=== PATIENT | male | born 1945 | race Caucasian/White ===

== ENCOUNTER 2022-11-29 08:57 | Inpatient (IN) | payer OTHER ==
[~2022-11-29] VITALS: Ht 180.3 cm; Wt 115.2 kg
[~2022-11-29 08:57] MED LIST: ALBU90OI INH; AMLO5 PO; ASPI81CH PO; ATOR80 PO; CITA20 PO; CITALOPRAM; FISH OIL 1,2001 EAC7 PO; LOSARTAN POTASS25 MG PO; METO25ER PO; SERT100 PO; TERA5 PO; TIOT18; TRAM50 PO; VITAMIN D31000 UNI1 PO; WARF10 PO
[2022-11-29] MEDS ORDERED: OMEP20ER PO (09:13)
[2022-11-29] MEDS ORDERED: WARF5 PO (09:13)
[2022-11-29 09:55] LABS: BASOPHILS ABSOLUTE AUTO 0.04 K/mm3 (0.00-0.23); BASOPHILS PERCENT AUTO 1 % (0-2); EOSINOPHILS PERCENT AUTO 3 % (0-6); Hematocrit 38.3 % (37.0-53.0); Hemoglobin 13.6 g/dL (13.5-17.5); IMMATURE GRAN ABSOLUTE AUTO 0.02 K/mm3 (0.00-0.10); IMMATURE GRAN PERCENT AUTO 0 % (0-1); LYMPHOCYTES ABSOLUTE AUTO 1.64 K/mm3 (0.84-5.20); LYMPHOCYTES PERCENT AUTO 23 % (21-46); MONOCYTES ABSOLUTE AUTO 0.84 K/mm3 (0.16-1.47); MONOCYTES PERCENT AUTO 12 % (4-13); Mean Corpuscular HGB 33.3 pg (26.0-34.0); Mean Corpuscular HGB Conc 35.5 g/dL (31.5-36.5); Mean Corpuscular Volume 94 fL (80-100); Mean Platelet Volume 9.9 fL (9.1-12.4); NEUTROPHILS ABSOLUTE AUTO 4.32 K/mm3 (1.96-9.15); NEUTROPHILS PERCENT AUTO 61 % (41-73); Platelet Count 105 K/mm3 (150-400); RDW Coefficient Variation 12.7 % (11.7-14.2); RDW Standard Deviation 43.7 fL (35.1-46.3); Red Blood Cell Count 4.08 M/mm3 (4.30-5.90); White Blood Cell Count 7.06 K/mm3 (4.00-11.30)
[2022-11-29 10:07] LABS: Albumin, Blood 3.5 g/dL (3.4-5.0); Albumin/Globulin Ratio 1.1 (0.8-1.8); Bilirubin, Total 0.4 mg/dL (0.1-1.0); Bun/Creatinine Ratio 28.9 (12.0-20.0); Calcium, Blood 8.7 mg/dL (8.5-10.1); Creatinine, Blood 1.35 mg/dL (0.60-1.20); Globulin, Blood 3.2 g/dL (2.2-4.0); Potassium, Blood 4.3 mmol/L (3.5-5.5); Total Protein, Blood 6.7 g/dL (6.4-8.2)
[2022-11-29 10:17] LABS: International Normalized Ratio 1.37; Prothrombin Time Results 14.1 Sec (9.7-11.5)
[2022-11-29 13:33] VITALS: BP 146/57
[2022-11-29 15:58] VITALS: BP 133/73
[2022-11-29] MEDS ORDERED: WARF1 PO (16:27)
--- NOTE | 2022-11-29 18:42 | NUR ---
PT ARRIVED FROM ER THIS AFTERNOON WITH C/O BRADYCARDIA. PT ARRIVES TO UNIT WITH NOTED TRIGEMINY ON MONITOR WITH RATE IN 60s. PT DENIES CP OR SOB, WITH COUGH THAT IS PRODUCTIVE WITH GREEN MUCUS. PT WITH POSSIBLE TRANSFER TO [facility] FOR PACE MAKER PLACEMENT
[2022-11-29 19:44] VITALS: BP 136/91
[2022-11-29 23:08] VITALS: BP 126/66
[2022-11-30 03:11] VITALS: BP 147/59
[2022-11-30 04:16] LABS: BASOPHILS ABSOLUTE AUTO 0.03 K/mm3 (0.00-0.23); BASOPHILS PERCENT AUTO 1 % (0-2); EOSINOPHILS ABSOLUTE AUTO 0.27 K/mm3 (0.00-0.68); EOSINOPHILS PERCENT AUTO 4 % (0-6); Hematocrit 38.8 % (37.0-53.0); Hemoglobin 13.6 g/dL (13.5-17.5); IMMATURE GRAN ABSOLUTE AUTO 0.01 K/mm3 (0.00-0.10); IMMATURE GRAN PERCENT AUTO 0 % (0-1); LYMPHOCYTES ABSOLUTE AUTO 1.73 K/mm3 (0.84-5.20); LYMPHOCYTES PERCENT AUTO 27 % (21-46); MONOCYTES ABSOLUTE AUTO 0.68 K/mm3 (0.16-1.47); MONOCYTES PERCENT AUTO 11 % (4-13); Mean Corpuscular HGB 33.3 pg (26.0-34.0); Mean Corpuscular HGB Conc 35.1 g/dL (31.5-36.5); Mean Corpuscular Volume 95 fL (80-100); Mean Platelet Volume 9.5 fL (9.1-12.4); NEUTROPHILS ABSOLUTE AUTO 3.76 K/mm3 (1.96-9.15); NEUTROPHILS PERCENT AUTO 58 % (41-73); Platelet Count 105 K/mm3 (150-400); RDW Coefficient Variation 12.6 % (11.7-14.2); Red Blood Cell Count 4.09 M/mm3 (4.30-5.90); White Blood Cell Count 6.48 K/mm3 (4.00-11.30)
[2022-11-30 04:28] LABS: International Normalized Ratio 1.8; Prothrombin Time Results 18.3 Sec (9.7-11.5)
[2022-11-30 04:37] LABS: Albumin, Blood 3.5 g/dL (3.4-5.0); Albumin/Globulin Ratio 1.1 (0.8-1.8); Bilirubin, Total 0.5 mg/dL (0.1-1.0); Calcium, Blood 8.9 mg/dL (8.5-10.1); Creatinine, Blood 1.28 mg/dL (0.60-1.20); Globulin, Blood 3.1 g/dL (2.2-4.0); Potassium, Blood 4.3 mmol/L (3.5-5.5); Total Protein, Blood 6.6 g/dL (6.4-8.2)
--- NOTE | 2022-11-30 06:38 | NUR ---
SHIFT SUMMARY PT IS A/Ox4 AND COOPERATIVE WITH CARE PROVIDED BY MEMBERS OF STAFF. ANSWERS QUESTIONS APPROPRIATELY AND ABLE TO MAKE HIS NEEDS KNOWN. PT IS ALSO COWLITZ. CARDIAC OSPINA, PT HAS BOUNCED ARROUND BETWEEN BIGEMINY WELL TRIGEMINY WITH HR RANGING 50-70'S T/O THE NIGHT. THERE WAS EPISODE WHEN PT ABULATED TO THE BATHROOM WHERE HIS HR KIRILL'D DOWN TO THE 30'S FOR ABOUT 30 SEC. AT THE TIME THE PT DID NOT REPORT ANY SYMPTOMS UNTIL HE GOT BACK TO BED. ONCE IN BED, PT REPORT FEELING "SOME PRESSURE" MIDSTERNALLY, BUT HIS SYMPTOMS RESOLVED QUICKLY. NO OTHER OCCURANCES OF THESE EPISODES DURING THE REST OF THE NIGHT. MAINTAIN SPO2 >92% ON RA WITH NO SOB OR DYSPNEA NOTED. ABLE TO ABULATE TO BATHROOM TITH SBP ASSIST. USES CANE AT BASELINE ACCORDING TO THE PT. ABLE TO IND. VOID IN URINAL. NO OTHER ORDERS AT THIS TIME, WILL REPORT TO SUDHAKAR WONG OF THIS NOTE
[2022-11-30 07:17] VITALS: BP 149/63
--- NOTE | 2022-11-30 08:57 | NUR ---
DR. BEAN AND DR. LA AT BEDSIDE. ECHO ORDERED TODAY, AND WE ARE WAITING FOR A BED AT THE [place]. NO FURTHER ORDERS AT THIS TIME.
[2022-11-30 11:16] VITALS: BP 142/82
--- NOTE | 2022-11-30 13:17 | NUR ---
CARDIOLOGY AT BEDSIDE, DR. WILBURN AND DR. BEY. NO ORDERS AT THIS TIME.
[2022-11-30 15:47] VITALS: BP 130/63
--- NOTE | 2022-11-30 17:49 | NUR ---
HIFT SUMMARY PT IS A&OX4, AND CALLS APPROPRIATELY. HIS VISITED THIS AM AND WAS UPDATED ON CARE. THE PT HAS NOT HAD ANY BRADYCARDIA EVENTS THIS SHIFT. HE HAS BEEN SR 60'S-70'S W/ BIGEMINY, TRIGEMINY, AND BBB ON TELE. HE HAS DENIED ANY ANGINA OR CHEST PRESSURE THIS SHIFT. A COFFEE BREWER CONSULT WAS OBTAINED TO DETERMINE IF THE PT IS PACEMAKER APPROPRIATE. DR. WILBURN AND DR. BEY STATED AT THIS TIME THE PT HAS NOT SHOWED INDICATION FOR A PACEMAKER BUT HE DOES NEED A VALVE REPAIR. [facility] FAXED OVER HIS RECORDS AND THE COFFEE BREWER WILL REVIEW THEM TO DETERMINE THE DIRECTION OF CARE. PT HAS BEEN ON RA THIS SHIFT AND HAS DENIED ANY SOB. HE WAS ABLE TO GIVE HIMSELF A BED BATH W/O ANY ISSUES. HE IS A SBA FOR [place] AND MAKES HIS NEEDS KNOWN. BED IN LOW, CALL LIGHT IN REACH. SEE NOTES FOR ANY UPDATES.
[2022-11-30 19:20] VITALS: BP 135/53
[2022-11-30 23:32] VITALS: BP 141/80
[2022-12-01 03:24] VITALS: BP 134/69
[2022-12-01 04:27] LABS: BASOPHILS ABSOLUTE AUTO 0.03 K/mm3 (0.00-0.23); BASOPHILS PERCENT AUTO 0 % (0-2); EOSINOPHILS ABSOLUTE AUTO 0.34 K/mm3 (0.00-0.68); EOSINOPHILS PERCENT AUTO 5 % (0-6); Hematocrit 39.6 % (37.0-53.0); Hemoglobin 13.5 g/dL (13.5-17.5); IMMATURE GRAN ABSOLUTE AUTO 0.01 K/mm3 (0.00-0.10); IMMATURE GRAN PERCENT AUTO 0 % (0-1); LYMPHOCYTES ABSOLUTE AUTO 1.89 K/mm3 (0.84-5.20); LYMPHOCYTES PERCENT AUTO 28 % (21-46); MONOCYTES PERCENT AUTO 12 % (4-13); Mean Corpuscular HGB 32.2 pg (26.0-34.0); Mean Corpuscular HGB Conc 34.1 g/dL (31.5-36.5); Mean Corpuscular Volume 95 fL (80-100); Mean Platelet Volume 9.6 fL (9.1-12.4); NEUTROPHILS ABSOLUTE AUTO 3.78 K/mm3 (1.96-9.15); NEUTROPHILS PERCENT AUTO 55 % (41-73); Platelet Count 105 K/mm3 (150-400); RDW Coefficient Variation 12.6 % (11.7-14.2); RDW Standard Deviation 43.6 fL (35.1-46.3); Red Blood Cell Count 4.19 M/mm3 (4.30-5.90); White Blood Cell Count 6.85 K/mm3 (4.00-11.30)
[2022-12-01 04:47] LABS: Albumin, Blood 3.4 g/dL (3.4-5.0); Anion Gap 5 mmol/L (6-16); Blood Urea Nitrogen 29 mg/dL (8-24); Bun/Creatinine Ratio 21.6 (12.0-20.0); CO2, Blood 25 mmol/L (21-32); Calcium, Blood 8.8 mg/dL (8.5-10.1); Chloride, Blood 111 mmol/L (98-108); Creatinine, Blood 1.34 mg/dL (0.60-1.20); Glomerular Filtration Rate 55 (60-); Glucose, Blood 93 mg/dL (70-99); Magnesium, Blood 2.2 mg/dL (1.6-2.4); Phosphorus, Blood 3.5 mg/dL (2.5-4.9); Potassium, Blood 4.5 mmol/L (3.5-5.5); Sodium, Blood 141 mmol/L (136-145)
[2022-12-01 04:59] LABS: International Normalized Ratio 3.1; Prothrombin Time Results 30.5 Sec (9.7-11.5)
--- NOTE | 2022-12-01 05:22 | NUR ---
SHIFT SUMMARY PT A/Ox4 AND COOPERATIVE WITH CARE PROVIDED BY MEMBERS OF STAFF. ANSWERS QUESTIONS APPROPRIATELY AND ABLE TO MAKE HIS NEEDS KNOWN. CARDIAC OSPINA, PT RHYTHM VARIES BETWEEN BIGEMINY AND TRIGEMINY WITH A RATE 50-60'S. NO COMPLAINTS OF CP, PRESSURE, OR DIZZINESS T/O THE SHIFT. PT DID HAVE ANOTHER EPISODE OF BRADYCARDIA WHERE HIS HR DROPPED TO THE 20-30'S FOR ~15-20 SECS. PT WAS ASYMPTOMATIC HOWEVER FOR HE DID NOT REPORT ANY DIZZNESS/WEAKNESS AT THE TIME OF THS EVENT. MAINTAINS SPO2 >90% ON RA WITH NO REPORTS OF SOB OR DYSPEA. ABLE TO WALK TO BATHROOM OR BSC W/O ASSISTANCE FROM STAFF. NO NEW ORDERS AT THIS TIME, WILL REPORT TO ONCOMING RN.
[2022-12-01 09:19] VITALS: BP 147/87
[2022-12-01 11:34] VITALS: BP 139/65
[2022-12-01 14:46] VITALS: BP 135/59
--- NOTE | 2022-12-01 15:34 | NUR ---
Spiritual care visit conducted. Patient immediately tells me about his medical problems, his thoughts on and dying and his concerns for his spouse. Patient talks about his deep peace about deatha dn the afterlife. He then shares about his strong Christain endy and his strong yazdanism connections with [facility]. He voices concerns about not knowing what the medical plan will be with him. He states that he would prefer to not go home with his medical issues unresolved. I listen empathically, normalize his feelings and fears and provide anxiety containment, and prayer. Patient reponded well and showed signs of increased peace and an elevated mood
[2022-12-01 19:29] VITALS: BP 123/60
[2022-12-01 23:06] VITALS: BP 141/66
[2022-12-02 03:58] VITALS: BP 142/65
--- NOTE | 2022-12-02 06:17 | NUR ---
SHIFT SUMMARY PT IS A/Ox4 AND COOPERATIVE WITH CARE PROVIDED BY MEMBERS OF STAFF. ANSWERS QUESTIONS APPROPRIATELY AND ABLE TO MAKE HIS NEEDS KNOWN. NO ACUTE EVENTS LAST NIGHT FOR PT WAS ABLE TO SLEEP FOR MAJORITY TO THE SHIFT. CARDIAC OSPINA, REMAINS IN BIGEMINY WITH OCCASIONAL SWITCH TO TRIGEMINY. NO REPORTS OF CP, DIZZYNESS, OR WEAKNES T/O THE SHIFT. BP'S HAVE BEEN STABLE WELL. RESPIRATORY OSPINA, MAINTAINS SPO2 >92% ON RA WITH NO C/O SOB OR DYSPNEA. CAN OCCASIONALLY DESAT TO UPPER 80'S WHEN SLEEPING, BUT DOES NOT SUSTAIN THERE. ABLE TO IND. VOID IN HIS URINAL OR SBA WALK TO THE BATHROOM. PT UPDATED ON PLAN OF CARE FOR TRANSFER UP [place] FOR TAVR REPAIR. NO NEW ORDERS AT THIS TIME, WILL REPORT TO ONCOMING RN. WONG T/O THE SHIFT
[2022-12-02 06:34] LABS: International Normalized Ratio 2.94
[2022-12-02 06:56] LABS: Albumin, Blood 3.5 g/dL (3.4-5.0); Anion Gap 3 mmol/L (6-16); Blood Urea Nitrogen 30 mg/dL (8-24); Bun/Creatinine Ratio 20.7 (12.0-20.0); CO2, Blood 28 mmol/L (21-32); Calcium, Blood 8.8 mg/dL (8.5-10.1); Chloride, Blood 110 mmol/L (98-108); Creatinine, Blood 1.45 mg/dL (0.60-1.20); Glomerular Filtration Rate 50 (60-); Glucose, Blood 95 mg/dL (70-99); Phosphorus, Blood 3.8 mg/dL (2.5-4.9); Potassium, Blood 4.8 mmol/L (3.5-5.5); Sodium, Blood 141 mmol/L (136-145)
[2022-12-02 07:46] VITALS: BP 128/53
--- NOTE | 2022-12-02 09:34 | NUR ---
PT A&OX4, PLEASANT AND COOPERATIVE WITH CARE. LUNG SOUNDS CLEAR BILATERALLY, PT DENIES SOB. HR SR/TRI & BI GEM PVC/PAC/BBB 60'S, PT DENIES CHEST PAIN/PRESSURE. BOWEL TONES PRESENT, NO TENDERNESS OR DISTENTION. PT STATED INTERMITTENT NEUROPATHY IN FEET. PULSES EQUAL AND STRONG UPPER AND LOWER EXTREMITIES. PT ATE 100% OF BREAKFAST. PT RESTING IN BED, CALL LIGHT WITHIN REACH.
--- NOTE | 2022-12-02 11:05 | NUR ---
WALKED PT AND MONITORED HR AND OXYGEN SATURATION PER DR. ROSADO. WALKED PT FROM HIS ROOM, AROUND THE NURSING STATION ONCE, AND BACK TO HIS ROOM. DURING THE WALK, PT STATED ON TWO SEPARATE OCCASIONS HE WAS FEELING FUZZY/DIZZY AND EXPERIENCING AN ACHING PAIN IN HIS CHEST. THE LOWEST HIS O2 SATURATION DROPPED TO WAS AROUND 90%, HIS HR INCREASED TO 70'S-80'S. ONCE IN HIS ROOM, PT STATED IT TOOK HIM AWHILE TO CATCH HIS BREATH. PT RESTING IN ROOM WITH FEMALE VISITOR, CALL LIGHT WITHIN REACH.
[2022-12-02 11:13] VITALS: BP 138/64
--- NOTE | 2022-12-02 11:46 | NUR ---
CALL PLACED TO DR. ANDREW AND DR. ROSADO TO UPDATE ON PATIENT RESPONSE TO WALK. NO NEW ORDERS. AT BEDSIDE. DR. ROSADO TO STOP BY AND VISIT WITH AFTER ROUNDS.
[2022-12-02 15:15] VITALS: BP 128/63
--- NOTE | 2022-12-02 15:58 | NUR ---
LONGWALL FOREMAN FROM [place] CALLED AND SPOKE WITH THIS RN. LONGWALL FOREMAN CAN BE REACHED AT [phone] AT [facility] [phone]. LONGWALL FOREMAN CONFIRMED PATIENT IS WAITING FOR BED. ONLY AVAILIBLE BED YESTERDAY WAS ICU. DR. ROSADO, FRUIT CANNER AND PATIENT/ UPDATED ON PENDING BED/TRANSFER.
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
--- NOTE | 2022-12-02 17:15 | NUR ---
PT HAS BEEN RESTING IN BED. PT AND HIS INFORMED BY KYLE SUÁREZ THAT PT WAS ACCEPTED INTO [facility], JUST WAITING FOR A BED TO OPEN UP. PT AND HIS STATED UNDERSTANDING. NO ACUTE CHANGES, SEE PREVIOUS NOTE. HR 50'S-70'S, PT DENIES CHEST PAIN/PRESSURE. O2 SATURATION ABOVE 92% ON ROOM AIR, DENIES SOB. PT EATING DINNER, CALL LIGHT WITHIN REACH.
--- NOTE | 2022-12-02 17:41 | NUR ---
THIS RN HAS REVIEWED ALL TONGUE AND GROOVE MACHINE SETTER DOCUMENTATION
[2022-12-02 19:39] VITALS: BP 137/60
[2022-12-02 23:45] VITALS: BP 136/99
--- NOTE | 2022-12-03 04:35 | NUR ---
END OF SHIFT: PATIENT DENIES CHEST PAIN PRESSURE OR INCREASED SOB. PATIENT ALERT AND ORIENTED, VSS ABLE TO MAKE NEEDS KNOWN. SWITCEHED IV DUE TO INFILTRATION ON Q12 FLUSHING. PATIENT TOLERATED WELL. NO CHANGE TO RATE AND RYHTHM FROM ASSUMPTION OF CARE. NO NEWS FROM [facility] OF BED AVAILABLE STILL WAITING. PATIENT SLEPT WELL MOST OF THE SHIFT, WILL CONTINUE TO MONITOR UNTIL SHIFT CHANGE. NO CONCERNS FROM PATIENT OR THIS MASS SPEC AT THIS TIME.
[2022-12-03 04:57] VITALS: BP 148/75
[2022-12-03 05:00] LABS: International Normalized Ratio 2.35; Prothrombin Time Results 23.5 Sec (9.7-11.5)
[2022-12-03 05:05] LABS: Albumin, Blood 3.4 g/dL (3.4-5.0); Anion Gap 5 mmol/L (6-16); Blood Urea Nitrogen 32 mg/dL (8-24); Bun/Creatinine Ratio 21.8 (12.0-20.0); CO2, Blood 26 mmol/L (21-32); Calcium, Blood 8.9 mg/dL (8.5-10.1); Chloride, Blood 110 mmol/L (98-108); Creatinine, Blood 1.47 mg/dL (0.60-1.20); Glomerular Filtration Rate 49 (60-); Glucose, Blood 97 mg/dL (70-99); Phosphorus, Blood 3.8 mg/dL (2.5-4.9); Potassium, Blood 4.6 mmol/L (3.5-5.5); Sodium, Blood 141 mmol/L (136-145)
[2022-12-03 08:15] VITALS: BP 154/68
--- NOTE | 2022-12-03 09:22 | NUR ---
PT A&OX4, PLEASANT AND COOPERATIVE WITH CARE. PT STATED SMALL AMOUNT OF DARK/GREEN SPUTUM PRESENT WHEN COUGHS THIS MORNING, LUNG SOUNDS CLEAR THROUGHOUT, PT DENIES SOB. HR SR/TRI & BI GEM PVC/PAC/BBB 60'S-70'S, DENIES CHEST PAIN/PRESSURE, BP STABLE. NO SWELLING OF LOWER EXTREMITIES. PT DENIES PAIN. PT GOT UP IN CHAIR FOR BREAKFAST. PT NOW RESTING IN UPRIGHT POSITION IN BED, CALL LIGHT WITHIN REACH.
--- NOTE | 2022-12-03 10:23 | NUR ---
DR. ROSADO BY THIS AM. STILL WAITING FOR [facility] TO OPEN UP AND [facility] TRANSFER. PATIENT REPORTS GREEN SPUTUM TO DR. ROSADO, RECOMMENDATIONS TO DRINK MORE FLUIDS.
[2022-12-03 11:34] VITALS: BP 153/57
--- NOTE | 2022-12-03 11:35 | NUR ---
Spiritual care visit conducted. Patient immediately tells me that he feels bad about taking a bed locally in the hospital when he should be up in [place] having his heart worked on. He also discusses his personal struggles. He talks about his yarsani and the new building they have just taken ownership of, and the support that he feels from the yarsani especially in challenging times. I listen empathically, reinforce helpful attitudes, recite scriptures that are directional and inspirational, and provide gentle budget counselor and prayer. Patient responded well and showed signs of being encouraged in his endy and a sense of catharsis.
--- NOTE | 2022-12-03 12:29 | NUR ---
SPOKE WITH NAYELI FROM [place], CAN BE REACHED AT [phone] [facility]. NAYELI STATES PATIENT IS STILL ON WAITLIST FOR [facility] TRANSFER. WAITING ON BED.
[2022-12-03 15:34] VITALS: BP 144/62
--- NOTE | 2022-12-03 16:25 | NUR ---
Pt here awaiting transfer to [facility] for pacer and TAVR. AT this time, these are the goals he is focused on. Established repoir, but nothing more at this time. Pt was pleasant, alert and oriented.
--- NOTE | 2022-12-03 17:08 | NUR ---
NO ACUTE CHANGES, SEE PREVIOUS NOTE. HR SR/TRI & BI GEM PVC/PAC/BBB, BP STABLE, PT DENIES CHEST PAIN. LUNG SOUNDS CLEAR, SATING ABOVE 94% ON RA. PT RESTING IN BED, CALL LIGHT WITHIN REACH.
[2022-12-03 18:08] LABS: SARS-Cov-2 (COVID-19) PCR, MMC NEGATIVE (NEGATIVE)
[2022-12-03 18:24] VITALS: BP 144/62
--- NOTE | 2022-12-03 18:41 | NUR ---
PT PICKED UP FOR TRANSFER TO [place]. PT LEFT WITH ALL PERSONAL BELONGINGS. TRANSFER DOCUMENTS GIVEN TO TRANSPORTERS TO PASS OF TO [facility] STAFF. KYLE SUÁREZ GAVE REPORT TO [facility] STAFF.
--- NOTE | 2022-12-03 18:45 | NUR ---
PATIENT TRANSFER TO [place] VIA AMBULANCE. REPORTED OFF TON [facility] NURSE. VITAL SIGNS REMAIN STABLE AT TRANSFER. CALLED AND UPDATED. REPORTED OFF TO AMBULANCE. PATIENT LEFT UNIT WITH ALL PERSONAL BELONGINGS.
== END 2022-12-03 18:20 | disposition short-term general hospital (02) | DRG 315 ==
LOC: ER 08:57 → PCU 08:58 → ER 08:58 → PCU 08:58
PROVIDERS: Emergency Medicine; Family Medicine; Internal Medicine; Student in an Organized Health Care Education/Training Program; ADMIT Internal Medicine
DX: T82.857A Stenosis of other cardiac prosthetic devices, implants and grafts, initial encounter (principal); N17.9 Acute kidney failure, unspecified; T82.867A Thrombosis due to cardiac prosthetic devices, implants and grafts, initial encounter; Z20.822 Contact with and (suspected) exposure to COVID-19; E78.5 Hyperlipidemia, unspecified; I12.9 Hypertensive chronic kidney disease with stage 1 through stage 4 chronic kidney disease, or unspecified chronic kidney disease; N18.30 Chronic kidney disease, stage 3 unspecified; G62.9 Polyneuropathy, unspecified; N40.0 Benign prostatic hyperplasia without lower urinary tract symptoms; J44.9 Chronic obstructive pulmonary disease, unspecified; Z96.611 Presence of right artificial shoulder joint; Z96.612 Presence of left artificial shoulder joint; Z86.711 Personal history of pulmonary embolism; Z86.718 Personal history of other venous thrombosis and embolism; Z96.653 Presence of artificial knee joint, bilateral; Z87.891 Personal history of nicotine dependence; Z88.1 Allergy status to other antibiotic agents; Z88.2 Allergy status to sulfonamides; Z79.01 Long term (current) use of anticoagulants; Z79.82 Long term (current) use of aspirin; Z79.899 Other long term (current) drug therapy; Y83.1 Surgical operation with implant of artificial internal device as the cause of abnormal reaction of the patient, or of later complication, without mention of misadventure at the time of the procedure
CPT/HCPCS: 36415; 71045; 80053; 80069; 83735; 83880; 84484; 85025; 85610; 93005; 93010; 94640; 94664; 94760; 99285-25; A9270; C8929; G0378; Q9957; U0002

== ENCOUNTER → 2024-04-07 | Outpatient (CLI) | payer OTHER ==
[~2024-04-07] MED LIST changes: +OMEP20ER PO; +WARF1 PO; +WARF5 PO
[2024-04-07 11:36] LABS: Protein, Urine Quantitative 11.6 mg/dL (0.0-11.9)
[2024-04-07 11:50] LABS: Microalbumin, Urine Quant. 18.5 mg/L (0.000-20.000)
== END ==
LOC: LAB SHORT 06:50 → LAB 06:50 → LAB FUT 04-04 10:00
PROVIDERS: Internal Medicine Nephrology
DX: N18.30 Chronic kidney disease, stage 3 unspecified (principal); D63.1 Anemia in chronic kidney disease; N25.81 Secondary hyperparathyroidism of renal origin; E55.9 Vitamin D deficiency, unspecified; E78.00 Pure hypercholesterolemia, unspecified; N40.1 Benign prostatic hyperplasia with lower urinary tract symptoms; R76.9 Abnormal immunological finding in serum, unspecified; R94.5 Abnormal results of liver function studies; R94.6 Abnormal results of thyroid function studies
CPT/HCPCS: 81050; 82043; 82570; 84156

== ENCOUNTER → 2024-06-13 | Outpatient (CLI) | payer OTHER ==
[2024-06-14 16:48] LABS: Protein, Urine Quantitative 7.8 mg/dL (0.0-11.9)
[2024-06-14 16:51] LABS: Creatinine Urine 91.3 mg/dL (27.00-270.00); Microalbumin, Urine Quant. 12.4 mg/L (0.000-20.000)
== END | disposition home or self-care (01) ==
LOC: LAB 19:50 → LAB SHORT 19:50 → LAB FUT 06-12 12:30
PROVIDERS: Internal Medicine Nephrology
DX: N18.30 Chronic kidney disease, stage 3 unspecified (principal); D63.1 Anemia in chronic kidney disease; D50.9 Iron deficiency anemia, unspecified; D52.8 Other folate deficiency anemias; D51.8 Other vitamin B12 deficiency anemias; N25.81 Secondary hyperparathyroidism of renal origin; E55.9 Vitamin D deficiency, unspecified; E78.00 Pure hypercholesterolemia, unspecified; R76.9 Abnormal immunological finding in serum, unspecified; R94.5 Abnormal results of liver function studies; R94.6 Abnormal results of thyroid function studies
CPT/HCPCS: 81050; 82043; 82570; 84156

== ENCOUNTER 2025-03-16 14:53 | Emergency (ER) | payer OTHER ==
[~2025-03-16] VITALS: Ht 177.8 cm; Wt 115.7 kg
[2025-03-16 15:45] LABS: BASOPHILS ABSOLUTE AUTO 0.03 K/mm3 (0.00-0.23); BASOPHILS PERCENT AUTO 1 % (0-2); EOSINOPHILS ABSOLUTE AUTO 0.15 K/mm3 (0.00-0.68); EOSINOPHILS PERCENT AUTO 3 % (0-6); Hematocrit 37.9 % (37.0-53.0); Hemoglobin 13.3 g/dL (13.5-17.5); IMMATURE GRAN ABSOLUTE AUTO 0.02 K/mm3 (0.00-0.10); IMMATURE GRAN PERCENT AUTO 0 % (0-1); LYMPHOCYTES ABSOLUTE AUTO 2.00 K/mm3 (0.84-5.20); LYMPHOCYTES PERCENT AUTO 40 % (21-46); MONOCYTES ABSOLUTE AUTO 0.67 K/mm3 (0.16-1.47); MONOCYTES PERCENT AUTO 13 % (4-13); Mean Corpuscular HGB Conc 35.1 g/dL (31.5-36.5); Mean Corpuscular Volume 97 fL (80-100); NEUTROPHILS ABSOLUTE AUTO 2.14 K/mm3 (1.96-9.15); NEUTROPHILS PERCENT AUTO 43 % (41-73); NRBC ABSOLUTE 0.00 K/mm3 (0.00-0.02); NRBC Auto 0.0 /100 WBC (0.0-0.2); Platelet Count 102 K/mm3 (150-400); RDW Coefficient Variation 13.8 % (11.7-14.2); RDW Standard Deviation 48.7 fL (35.1-46.3)
[2025-03-16 15:56] LABS: Prothrombin Time Results 25.6 Sec (9.7-11.5)
[2025-03-16 16:13] LABS: Alanine Aminotransfer (ALT/SGP 33.0 U/L (12-78); Albumin, Blood 3.8 g/dL (3.4-5.0); Albumin/Globulin Ratio 1.3 (0.8-1.8); Anion Gap 9.0 mmol/L (3-11); Aspartate Aminotrans (AST/SGOT 29.0 U/L (12-37); Bilirubin, Total 0.4 mg/dL (0.1-1.0); Blood Urea Nitrogen 31.0 mg/dL (8-24); CO2, Blood 23.0 mmol/L (21-32); Calcium, Blood 8.7 mg/dL (8.5-10.1); Chloride, Blood 112.0 mmol/L (98-108); Creatinine, Blood 1.96 mg/dL (0.60-1.20); Globulin, Blood 2.9 g/dL (2.2-4.0); Glucose, Blood 77.0 mg/dL (70-99); Potassium, Blood 4.0 mmol/L (3.5-5.5); Sodium, Blood 140.0 mmol/L (136-145); Total Protein, Blood 6.7 g/dL (6.4-8.2)
[2025-03-16 17:37] LABS: CORONAVIRUS COVID-19 AG Negative (NEGATIVE)
[2025-03-16 19:30] VITALS: BP 169/84
[2025-03-16] MEDS ORDERED: AMIODARONE HCL100 M3 PO (19:53)
== END 2025-03-16 20:19 | disposition home or self-care (01) ==
LOC: ER 14:53
PROVIDERS: Emergency Medicine; Student in an Organized Health Care Education/Training Program
DX: R00.1 Bradycardia, unspecified (principal); I10 Essential (primary) hypertension; J44.9 Chronic obstructive pulmonary disease, unspecified; Z87.891 Personal history of nicotine dependence; Z88.2 Allergy status to sulfonamides; Z88.8 Allergy status to other drugs, medicaments and biological substances; Z79.82 Long term (current) use of aspirin; Z79.899 Other long term (current) drug therapy; Z79.01 Long term (current) use of anticoagulants
CPT/HCPCS: 71046; 80053; 83690; 83880; 84484; 85025; 85610; 87428-QW; 93005; 93010; 99284-25